=== PATIENT | female | born 1965 | race Caucasian/White ===

== ENCOUNTER 2018-07-09 17:57 | Emergency (ER) | payer BC, OTHER ==
[~2018-07-09] VITALS: Ht 172.7 cm; Wt 81.6 kg
--- NOTE | 2018-07-09 18:43 | PHYS DOC ---
Past Medical History Past Medical History: Hypothyroid Additional Past Medical Histor: OVARIAN CANCER Past Surgical History: Appendectomy, Cholecystectomy, Hysterectomy Additional Past Surgical Histo: LEFT KNEE Alcohol Use: Rarely Drug Use: None Adult General Chief Complaint Chief Complaint: KNEE INJURY HPI HPI Patient is a 52 year old female who presents with left knee pain. Patient has a history of surgery on affected knee in 2018 and fell on her left knee one week ago. She denied any swelling or pain immediately after the fall. However, for the past three days she has experienced increased pain and swelling in the knee. The pain is mostly located on the posterior aspect of her knee with radiation into her calf. She describes the pain a constant throbbing sensation that is worsened with movement and palpation. She attempted ice and Tylenol with little relief. Patient denies any chest pain, hemoptysis, and pain with taking deep breaths. Review of Systems Review of Systems Constitutional: Denies fever or chills Eyes: Denies redness or eye pain HENT: Denies nasal congestion or sore throat Respiratory: Denies cough or shortness of breath Cardiovascular: Denies chest pain or palpitations GI: Denies abdominal pain, nausea, vomiting : Denies dysuria or hematuria Musculoskeletal: Reports left knee pain. Denies back pain or joint pain Integument: Denies rash or skin lesions Neurologic: Denies focal weakness or sensory changes Complete systems were reviewed and found to be within normal limits, except as documented in this note. Current Medications Current Medications Current Medications Medications (Trade) Dose Ordered Sig/Marie Start Time Stop Time Status Last Admin Dose Admin Ketorolac Tromethamine (Toradol 15mg Vial) 15 mg 1X ONCE 07/09/18 18:45 07/09/18 18:47 DC 07/09/18 18:45 15 MG Ketorolac Tromethamine (Toradol 30mg Vial) 30 mg 1X ONCE 07/09/18 18:45 07/09/18 18:45 DC Allergies Allergies Allergies Coded Allergies Type Severity Reaction Last Updated Verified codeine Allergy Severe ALMOST UNRESPONSIVE 07/09/18 Yes Physical Exam Physical Exam Constitutional: Well developed, well nourished, no acute distress. HENT: Normocephalic, atraumatic Eyes: EOMI, conjunctiva normal Neck: Normal range of motion, supple. Cardiovascular: Heart rate regular rhythm, no murmur Lungs & Thorax: Bilateral breath sounds clear to auscultation Abdomen: Soft, no tenderness Skin: Warm, dry Back: No tenderness, no CVA tenderness Extremities: Left posterior knee tenderness to palpation, negative anterior and posterior draw test, negative valgus and varus, posterior swelling of left knee Neurologic: Alert and oriented X 3, no focal deficits noted Psychologic: Affect normal, judgement normal Current Patient Data Vital Signs Vital Signs Date Time Temp Pulse Resp B/P (MAP) Pulse Ox O2 Delivery O2 Flow Rate FiO2 07/09/18 19:11 62 140/58 (85) 97 Room Air 07/09/18 18:19 97.8 20 97.8 EKG EKG [] Radiology/Procedures Radiology/Procedures PROCEDURE: VENOUS LOWER EXTREMITY LEFT Left Lower Extremity Venous Doppler Ultrasound History: Left knee swelling and injury, fall 2 weeks ago Comparison: None Procedure: Color flow, duplex, spectral analysis and 2D images are obtained with and without compression in the area of the common femoral vein, superficial femoral vein - femoral vein junction, main femoral vein (superficial femoral vein) and popliteal vein. Veins of the proximal calf are also imaged. Findings: There is normal duplex flow, color flow and compressibility of all visualized vein segments. No evidence of deep venous thrombus is present. Impression: No evidence of DVT. Electronically signed by: Annalisa Bustos III, MD (07/09/2018 8:15 PM) [facility] DICTATED and SIGNED BY: ANNALSIA BUSTOS III, MD Left Knee X-ray Preliminary read by ER physician demonstrated intact hardware and no acute fracture, joint effusion noted Course & Med Decision Making Course & Med Decision Making 52 year old female presented to the emergency department for left knee pain. Patient had surgery on this knee in 2018. She also reports a recent fall onto affected knee. Patient contacted orthopedic surgeon and he recommend patient be evaluated to rule out DVT. Pertinent labs and imaging obtained and documented to chart. US showed no evidence of DVT. X-ray was negative for fracture or hardware misalignment. Symptomatic treatment provided with interval improvement. Patient has ortho follow up on Saturday. Patient offered milton bandage for support, however patient refusing and reports has milton bandage and knee braces at home she can use. Patient stable for discharge and follow up with PCP and ortho. Discussed findings with patient and family who acknowledge understanding and are in agreement with plan. Nina Disclaimer Dragon Disclaimer This electronic medical record was generated, in whole or in part, using a voice recognition dictation system. Departure Departure Impression: Primary Impression: Valladares's cyst of knee Additional Impression: Knee pain Disposition: 01 HOME, SELF-CARE Condition: STABLE Referrals: NO PCP (PCP) Patient Instructions: Valladares's Cyst, Knee Pain, [id number] Additional Instructions: Continue to use ibuprofen and Tylenol for pain or discomfort. Ice 20 minutes on and 20 minutes off for the next two days. Problem Qualifiers Primary Impression: Valladares's cyst of knee Laterality: left Qualified Codes: M71.22 - Synovial cyst of popliteal spa ce [Valladares], left knee Additional Impression: Knee pain Chronicity: unspecified Laterality: left Qualified Codes: M25.562 - Pain in left knee PIERRE AVALOS DO Jul 09, 2018 18:43
[2018-07-09] MEDS ORDERED: KETOROLAC 15 MG/ML VIAL. IV ONE (18:45)
[2018-07-09] MEDS ORDERED: KETOROLAC 30 MG/ML VIAL. IM ONE (18:45)
[2018-07-09 19:11] VITALS: BP 140/58
--- NOTE | 2018-07-09 20:18 | RAD ---
Left Lower Extremity Venous Doppler Ultrasound History: Left knee swelling and injury, fall 2 weeks ago Comparison: None Procedure: Color flow, duplex, spectral analysis and 2D images are obtained with and without compression in the area of the common femoral vein, superficial femoral vein - femoral vein junction, main femoral vein (superficial femoral vein) and popliteal vein. Veins of the proximal calf are also imaged. Findings: There is normal duplex flow, color flow and compressibility of all visualized vein segments. No evidence of deep venous thrombus is present. Impression: No evidence of DVT. Electronically signed by: Jordon Bustos III, MD (07/09/2018 8:15 PM) [facility]
--- NOTE | 2018-07-10 08:06 | RAD ---
Examination: KNEE LEFT 3V History: LEFT KNEE PAIN Comparison/Correlation: None Findings: Total 3 images of the left knee were obtained. Total left knee joint prosthesis present. Moderate-sized knee joint effusion. No evidence of loosening. No fracture or destructive finding. Soft tissues are unremarkable. Impression: Joint effusion. Total left knee joint arthroplasty is intact. Electronically signed by: Brody Christy MD (07/10/2018 8:03 AM) [facility]
== END 2018-07-09 21:00 | disposition home or self-care (01) ==
LOC: ER 17:57
DX: M71.22 Synovial cyst of popliteal space [Baker], left knee (principal); E03.9 Hypothyroidism, unspecified; Z90.89 Acquired absence of other organs; Z90.710 Acquired absence of both cervix and uterus; Z90.49 Acquired absence of other specified parts of digestive tract; Z88.5 Allergy status to narcotic agent
CPT/HCPCS: 73562; 93971; 96374; 99284; J1885